=== PATIENT | male | born 1970 | race Caucasian/White ===

== ENCOUNTER 2024-06-20 11:47 | Emergency (ER) | payer OTHER, SELFPAY ==
[2024-06-20 11:48] VITALS: BP 123/90; PULSE 90; TEMP 36.9; O2SAT 95; BMI 34.4
--- NOTE | 2024-06-20 12:01 | XR_ITS ---
The [address] [address] Patient Name: ZARI VICENTE MRN: [id number] date: 1970 Sex: M Assigned Patient Location: ER Current Patient Location: ER Accession/Order Number: [id number] Exam Date: 06/20/2024 12:18 Report Date: 06/20/2024 13:04 At the request of: JAYCE CARVER Procedure: XR knee LT 3V PROCEDURE: XR knee LT 3V HISTORY: injury COMPARISON: None. FINDINGS: BONES:Small degenerative osteophytes along the articular margin of patella. Degenerative disease at C5-6 and tendon insertions into the patella. No bone fracture or dislocation. No significant joint space narrowing. SOFT TISSUES:Soft tissue swelling anterior to the patella. EFFUSION:Small joint effusion. OTHER: Negative. XR/XR knee LT 3V IMPRESSION: 1. No fracture or dislocation, with specific attention to the patella. 2. Swelling anterior to the patella compatible with prepatellar bursitis. 3. Small joint effusion. Electronically authenticated by: BRI GEE Date: 06/20/2024 13:04
--- NOTE | 2024-06-20 12:10 | ED.GENADUL1 ---
HPI HPI - General Adult General Chief complaint: Extremity Injury, Lower Stated complaint: LOWER LEFT EXTREMITY INJURY Time Seen by Provider: 06/20/24 12:09 Source: patient Mode of arrival: walk-in Limitations: no limitations History of Present Illness HPI narrative: Patient is a 54-year-old male who is presenting to the ER today with chief complaint of left knee pain. Patient has moderate amount of swelling anterior to the left patella. Patient is working at [employer], this is Worker's Comp. evaluation. Patient was walking between 2 carts. Patient noticed that the 2 carts were tied together, and he did not realize it. He tried to walk in between the 2 carts and patient fell forward, landing directly on his left knee/patella. Patient did not hit his head. He is on no blood thinners. Patient takes a cholesterol medication. Patient has small minimal abrasions to his left elbow he did not even realize until he was assessed by triage nurse Renetta ARCOS in the ER. Patient needs a tetanus update. No deep laceration. No other acute complaints. Patient was not able to walk, came in by EMS All systems are negative except as noted/marked. All systems reviewed and otherwise negative. Nurses note and vital signs reviewed and patient is not hypoxic. General: The patient appears well and in no apparent distress. Patient is resting comfortably on cart. Patient is not toxic, lethargic, or listless Skin: Warm, dry, no pallor noted. There is no rash noted. No petechiae, purpura. Superficial abrasions to his left elbow. Head: Normocephalic, atraumatic; no midline or paracervical tenderness to palpation. Full range of motion of cervical spine no difficulty. Eye: Normal conjunctiva, no drainage, EOMI. PERRL Ears, Nose, Mouth, and Throat: oral mucosa is moist. Nares patent. Mouth without vesicles. Cardiovascular: Regular Rate and Rhythm, no murmur, gallop, rub Respiratory: Patient is in no distress, no accessory muscle use, lungs are clear to auscultation, no wheezing, rales or rhonchi Back: non-tender, no CVA tenderness bilaterally to percussion. No CT LS midline pain GI: no tenderness to palpation, no masses appreciated. No rebound, guarding, or rigidity noted. No distention Musculoskeletal: Patient has full range of motion of all of the extremities except to his left knee. Patient has a moderate amount of joint effusion that is not ecchymotic anterior to the left patella. Patient has no pain with varus or valgus stress. Limited range of motion, negative anterior posterior drawer sign. Limited flexion extension secondary to prepatellar joint effusion to the left patella., no motor, sensory, or focal neurological deficits Neurological: A&O x4, normal speech Psychiatric: Cooperative Related Data Previous Rx's ?Medication ?Instructions ?Recorded hydrocodone 7.5 mg-acetaminophen 1 tab PO Q4H PRN pain #10 tabs 06/20/24 325 mg tablet Allergies Allergy/AdvReac Type Severity Reaction Status Date / Time No Known Drug Allergies Allergy Verified 06/20/24 11:56 Opioid HPI Opioid Management Most Recent Opioid Data: Last Pain Scale 5 06/20/24 12:20 Last MAR Pain Assessment 06/20/24 12:20 Exam Constitutional Vital Signs, click to edit/add: Last Vital Signs Temp 98.5 F 06/20/24 11:48 Pulse 90 06/20/24 11:48 Resp 18 06/20/24 11:48 BP 123/90 06/20/24 11:48 Pulse Ox 95 06/20/24 11:48 O2 Del Method Room Air 06/20/24 11:48 Course Vital Signs Vital signs: Vital Signs Temperature 98.5 F 06/20/24 11:48 Pulse Rate 90 06/20/24 11:48 Respiratory Rate 18 06/20/24 11:48 Blood Pressure 123/90 06/20/24 11:48 Pulse Oximetry 95 06/20/24 11:48 Oxygen Delivery Method Room Air 06/20/24 11:48 Temperature 98.5 F 06/20/24 11:48 Pulse Rate 90 06/20/24 11:48 Respiratory Rate 18 06/20/24 11:48 Blood Pressure 123/90 06/20/24 11:48 Pulse Oximetry 95 06/20/24 11:48 Oxygen Delivery Method Room Air 06/20/24 11:48 Medical Decision Making MDM Narrative Medical decision making narrative: Patient was placed in a knee immobilizer and crutches to his left knee. Splint was assisted with . the patient was neurovascularly intact before and after the splint was placed. the affected bones/injured area had proper alignment in a splint. Education on splint care at home was given at bedside. Patient and family have no questions at discharge. Patient was given ice, initially did not anything for pain, he was given Tylenol. Patient x-ray was discussed with Dr. Cao. Patient has no acute fracture. Patient was placed in immobilizer and crutches. Patient will follow-up with occupational health clinic at [facility]. Education on joint effusion, ice, using Tylenol, Motrin and [place] were discussed at bedside and on discharge paperwork. Patient understands this, no questions discharged Discharge Plan Discharge Stand Alone Forms: Work/School Release, Portal Instructions Chief Complaint: Extremity Injury, Lower Clinical Impression: Contusion of knee, left, Bursitis of left knee, Fall Patient Disposition: Home, Self-Care Time of Disposition Decision: 13:50 Condition: Fair Prescriptions / Home Meds: New hydrocodone-acetaminophen 7.5-325 mg tablet 1 tab PO Q4H PRN (Reason: pain) Qty: 10 0RF Print Language: Citizen [place] Instructions: Knee Bursitis (ED), Contusion in Adults (ED), P.R.I.C.E. Treatment (ED), Fall Prevention (ED) Additional Instructions: Follow-up with occupational health clinic at [facility]. Ice 20 minutes on, 20 minutes off. Do not use heat. Wear knee immobilizer at all times until you follow-up with the occupational health clinic besides ice and shower. Weightbearing as tolerated. Use crutches to help with weightbearing as tolerated for the next 3 to 5 days. Alternate Tylenol and either Motrin, Advil, or ibuprofen every 4 hours to help with pain. If you are having severe pain, substitute a [place] tablet instead of Tylenol. Do not take Tylenol and [place] at the same time, you may actually take too much Tylenol at 1 setting or in 1 day. Maximum Tylenol dose of Tylenol is 3000 mg a day. Maximum dose of either Motrin, Advil, or ibuprofen is 2400 mg a day. Referrals: Physician,Non-Staff, MD [Primary Care Provider] - 1 week Discharge Date/Time: 06/20/24 14:24
[2024-06-20] MEDS: BACITRACIN 0.9 GM PACKET 1 PACKET TOPICAL (12:20)
[2024-06-20] MEDS: ACETAMINOPHEN 500 MG TABLET PO (12:20)
[2024-06-20] MEDS: ADACEL DIPH,PERTUSS(ACELL),TET VAC/PF 0.5 ML ADULT SYRINGE IM (12:21)
== END 2024-06-20 14:24 | disposition home or self-care (01) ==
PROVIDERS: Emergency Provider Emergency Medicine
DX: S80.02XA Contusion of left knee, initial encounter (principal); S50.312A Abrasion of left elbow, initial encounter; M70.52 Other bursitis of knee, left knee; W01.0XXA Fall on same level from slipping, tripping and stumbling without subsequent striking against object, initial encounter; Z23 Encounter for immunization
CPT/HCPCS: 73562; 90471; 90715; 99284